=== PATIENT | male | born 1985 | race Caucasian/White ===

== ENCOUNTER 2024-02-21 20:21 | Emergency (ER) | payer MEDICAID, MEDICARE, SELFPAY ==
[2024-02-21 20:27] VITALS: BP 158/100
[2024-02-21 20:48] LABS: % Basophils 0.3 % (0-2); % Eosinophils 1.7 % (0-6); % Immature Granulocytes 0.5 % (0-0.5); % Lymphocytes 35.6 % (20.5-51.1); % Monocytes 8.1 % (1.7-9.3); % Neutrophils 53.8 % (42.2-75.2); Absolute Eosinophils 0.2 10^3/uL (0-0.7); Absolute Lymphocytes 3.1 10^3/uL (1.2-3.4); Absolute Monocytes 0.7 10^3/uL (0.1-0.6); Absolute Neutrophils 4.6 10^3/uL (1.4-6.5); Hematocrit 41.4 % (39.0-52.0); Hemoglobin 14.7 g/dL (13.0-18.0); Mean Corp Hgb Conc. 35.5 g/dL (33.0-37.0); Mean Corpuscular Hgb 32.2 pg (27.0-31.0); Mean Corpuscular Volume 90.8 fL (80.0-94.0); Mean Platelet Volume 9.2 fL (7.4-10.4); Nucleated Red Blood Cells % 0 % (-); Platelet Count 246 10^3/uL (130-400); Red Blood Cell Count 4.56 10^6/uL (4.70-6.10); Red Cell Dist. Width 12.8 % (11.5-14.5); White Blood Cell Count 8.6 10^3/uL (4.8-10.8)
[2024-02-21 21:05] LABS: ALT (SGPT) 63 U/L (0-50); AST (SGOT) 34 U/L (17-59); Albumin 4.6 g/dl (3.5-5.0); Alkaline Phosphatase 35 U/L (38-126); Blood Urea Nitrogen 10 mg/dl (9-20); Calcium 9.4 mg/dl (8.4-10.2); Carbon Dioxide 21 mmol/L (22-30); Chloride 103 mmol/L (98-107); Glucose 95 mg/dl (70-99); Magnesium 2.2 mg/dl (1.6-2.3); Potassium 4.1 mmol/L (3.5-5.1); Sodium 136 mmol/L (135-145); Total Bilirubin 0.4 mg/dl (0.2-1.3); Total Protein 7.3 g/dl (6.3-8.2); eGFR > 60.00
[2024-02-21 21:13] LABS: Troponin I < 0.012 ng/ml
[2024-02-21 21:36] LABS: TSH Reflex To Free T4 2.87 uIU/ml (0.47-4.68)
[2024-02-22 00:46] VITALS: BMI 34.8
[2024-02-22 00:47] VITALS: BP 132/94
[2024-02-22 01:00] VITALS: BP 141/99
[2024-02-22 02:00] VITALS: BP 134/84
--- NOTE | 2024-02-22 02:05 | ED.GENMED ---
History of Present Illness
General
Chief Complaint: Cardiac Symptoms
Source: patient
Time Seen by Provider: 02/22/24 01:47
History of Present Illness
History of Present Illness:
39-year-old male presents to the emergency room complaining of 'missed beats'. He has been experiencing these symptoms for the past week or so. They seem to be improving until today when he noticed them more frequently again. No fever, chills,
nausea or vomiting. Patient states he has baseline anxiety and these irregular heartbeats that made him quite concerned.
Phy Exam
Physical Exam
Physical Exam:
General: Awake, Alert, Oriented X3. No acute distress.
Vitals: unremarkable
Head: Atraumatic
Eyes: Pupils equal, EOMI
Throat: Airway intact, no exudates
Neck: Trachea midline
Lungs: Clear and equal b/l
Heart: Regular rate, no murmurs
Abd: Soft, Nontender, No pulsatile mass
Neuro: Nonfocal
Skin: Warm, dry, no rash
Extremities: pulses equal b/l, no edema
Course
Orders/Labs/Results
Orders:
Orders
02/21/24 20:22
Electrocardiogram (*1) Urgent
Reason for Study: Chest Pain
EKG- Treatment ONCE
02/21/24 20:41
Complete Blood Count/With Diff Urgent
Comprehensive Metabolic Panel Urgent
Magnesium Urgent
TSH Reflex To Free T4 Urgent
Troponin I Urgent
Abnormal Lab Results
02/21/24
20:41
RBC 4.56 L 10^6/uL
(4.70-6.10)
MCH 32.2 H pg
(27.0-31.0)
Absolute Monos (auto) 0.7 H 10^3/uL
(0.1-0.6)
Carbon Dioxide 21 L mmol/L
(22-30)
Creatinine 0.6 L mg/dL
(0.7-1.3)
ALT 63 H U/L
(0-50)
Alkaline Phosphatase 35 L U/L
(38-126)
02/21/24 20:41
02/21/24 20:41
Vital Signs
Initial and Last Documented VS:
Initial Vital Signs
Temp Pulse Resp BP Pulse Ox
98.2 F 99 20 158/100 99
02/21/24 20:27 02/21/24 20:27 02/21/24 20:27 02/21/24 20:27 02/21/24 20:27
Last Documented Vital Signs
Temp Pulse Resp BP Pulse Ox
98.2 F 85 22 134/84 96
02/21/24 20:27 02/22/24 02:15 02/22/24 02:15 02/22/24 02:00 02/22/24 02:15
MDM/Problems Addressed
Differential Diagnosis Includes:
PVCs, PACs, electrolyte abnormality
MDM/Problems Addressed:
Patient presents with palpitations. He has noted to have some PVCs. His labs are unremarkable. Patient stable for discharge home and follow-up as an outpatient with his primary care provider
*Pulse Oximetry
Patient hypoxic: no
*EKG
Interpreted by ED Provider?: Yes
Interpretation: abnormal
Heart Rate: 101
Rate: tachycardiac
Rhythm: sinus tachycardia
[place]: normal axis
Interval: normal interval
QRS Pattern: normal QRS
Ischemia: no ischemia
*[employer]itat [employer]ologist Interpretation
Rate: tachycardiac
Heart Rate: 101
Rhythm: sinus tachycardia
*Critical Care Note
Total Time (30-74mins, 75-104mins- exclusive of procedures): Not Applicable
ED Attending Note
-
Portions of this chart may have been created with voice recognition software.� Occasional wrong word or��sound alike� substitutions may have occurred due to the inherent limitations of voice recognition software.
Discharge Plan
Departure
Patient Disposition: Home (Routine Discharge)
Date of Disposition: 02/22/24
Time of Disposition: 02:05
Patient with high blood pressure during this ER visit?: No
Condition: Good
Discharge Problem:
Palpitations, Frequent PVCs
Prescriptions:
No Action
sertraline 100 mg Tablet
100 mg PO DAILY
Referrals:
Gurdeep Etienne MD [Active] -
Mary Renner DO [Family Provider] -
Activity Restrictions/Additional Instructions:
You are noted to have PVCs on the monitor. This explains her symptoms. They are benign. 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 Otherwise follow-up your primary care
provider.
Interventions
Interventions:
*Risk Screen - Suicide Last Done: 02/22/24 00:48
*General Assessment Last Done: 02/21/24 20:27
*Neglect/Abuse Screening Last Done: 02/22/24 00:48
ED- Fall Risk Assessment Last Done: 02/22/24 00:51
*ED COVID-19 Vaccine History Last Done: 02/22/24 00:47
*Nursing Disposition Last Done: 02/22/24 02:30
ED- Pulmonary Assessment Last Done: 02/22/24 00:51
ED- Cardiac Assessment Last Done: 02/22/24 01:02
Discharge Date and Time
Discharge Date/Time: 02/22/24 02:30
Print Language: SYRIAC
== END 2024-02-22 02:30 | disposition home or self-care (01) ==
LOC: EMR 20:21
PROVIDERS: Emergency Medicine; EMERGENCY PHYSICIAN Emergency Medicine; FAMILY PHYSICIAN Family Medicine
DX: R00.2 Palpitations (principal); I49.3 Ventricular premature depolarization; F41.9 Anxiety disorder, unspecified
CPT/HCPCS: 99284; 80053; 83735; 84443; 84484; 85025; 93005